=== PATIENT | male | born 1995 ===

== ENCOUNTER 2021-03-07 13:02 | Emergency (ER) | payer MEDICAID ==
[~2021-03-07] VITALS: Ht 162.6 cm; Wt 52.0 kg
[2021-03-07] MEDS ORDERED: LIDOcaine 1% W/epiNEPHrine 1:200,000 10ml vial IJ ONE (18:40)
[2021-03-07] MEDS ORDERED: DOXYCYCLINE 100MG CAPSULE PO STA (19:46)
[2021-03-07] MEDS ORDERED: cephalexin 500mg capsule PO ONE (19:50)
[2021-03-07] MEDS ORDERED: DOXY100C76 PO (19:56)
[2021-03-07] MEDS ORDERED: CEPH500C2 PO (19:56)
[2021-03-07 20:34] VITALS: BP 115/70
== END 2021-03-07 20:38 | disposition home or self-care (01) ==
LOC: ER 13:02
DX: L02.412 Cutaneous abscess of left axilla (principal); Z88.2 Allergy status to sulfonamides; Z88.1 Allergy status to other antibiotic agents; Z88.8 Allergy status to other drugs, medicaments and biological substances; Z88.6 Allergy status to analgesic agent; Z79.2 Long term (current) use of antibiotics
CPT/HCPCS: 10061; 99284